=== PATIENT | female | born 1935 | race Caucasian/White ===

== ENCOUNTER 2017-04-30 13:51 | Emergency (ER) | payer MEDICARE ==
[~2017-04-30] VITALS: Ht 162.6 cm; Wt 99.5 kg
[~2017-04-30 13:51] MED LIST: APIX5TAB PO; CARV12.52 PO
[2017-04-30 13:53] VITALS: BP 157/94
== END 2017-04-30 16:35 | disposition home or self-care (01) ==
LOC: ED 16:29
DX: Z46.82 Encounter for fitting and adjustment of non-vascular catheter (principal); I10 Essential (primary) hypertension; I48.91 Unspecified atrial fibrillation; N99.89 Other postprocedural complications and disorders of genitourinary system; Z87.891 Personal history of nicotine dependence; Z88.0 Allergy status to penicillin
CPT/HCPCS: 51702